=== PATIENT | female | born 1990 ===

== ENCOUNTER 2016-07-16 17:20 | Emergency (ER) | payer OTHER, MEDICAID ==
[~2016-07-16 17:20] MED LIST: FOLIC ACID; IRON1 TA1 PO; MOTRIN800 MG PO; PRENATAL1 EACH PO
== END 2016-07-16 20:05 ==
LOC: EDMED 17:20
DX: O9A.212 Injury, poisoning and certain other consequences of external causes complicating pregnancy, second trimester (principal); S39.011A Strain of muscle, fascia and tendon of abdomen, initial encounter; V49.40XA Driver injured in collision with unspecified motor vehicles in traffic accident, initial encounter